=== PATIENT | female | born 1965 | race Caucasian/White ===

== ENCOUNTER 2018-09-23 13:34 | Emergency (ER) | payer OTHER ==
[~2018-09-23] VITALS: Ht 160 cm; Wt 107.5 kg
[~2018-09-23 13:34] MED LIST: AMBIEN10 MG PO; ATIVAN1 MG PO; ESCITALOPRAM OX20 MG PO; L-THEANINE25 GM; LAMOTRIGINE100 MG PO; MELATONIN 5 MG1 EAC1 PO; PROPRANOLOL HCL40 MG PO; VALERIAN ROOT
--- OUTSIDE RECORDS SUMMARY | 2018-09-23 13:38 | XMS ---
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 Case has no Care Guidelines for this patient. Brianna VISIT COUNT (12 MO.) 1 [facility] TOTAL 1 NOTE: Visits indicate total known visits. ED/UCC VISIT TRACKING (12 MO.) 09/23/2018 13:35 [facility] [place] TYPE: Emergency COMPLAINT: - POSS MEDICATION REACTION INPATIENT VISIT TRACKING (12 MO.) No inpatient visits to display in this time frame [email or web address]
[2018-09-23] MEDS ORDERED: KEFLEX500 MG PO (14:39)
== END 2018-09-23 14:45 | disposition home or self-care (01) ==
LOC: ED 13:34
DX: L27.0 Generalized skin eruption due to drugs and medicaments taken internally (principal); T36.8X5A Adverse effect of other systemic antibiotics, initial encounter; F41.9 Anxiety disorder, unspecified; F32.9 Major depressive disorder, single episode, unspecified; Z87.891 Personal history of nicotine dependence; Z88.5 Allergy status to narcotic agent; Z88.2 Allergy status to sulfonamides; Z88.1 Allergy status to other antibiotic agents; Z79.899 Other long term (current) drug therapy
CPT/HCPCS: 99283; J1100; Q0163

== ENCOUNTER 2020-05-24 19:49 | Emergency (ER) | payer OTHER ==
[~2020-05-24] VITALS: Ht 160 cm; Wt 113.4 kg
[~2020-05-24 19:49] MED LIST changes: +KEFLEX500 MG PO
--- OUTSIDE RECORDS SUMMARY | 2020-05-24 19:52 | XMS ---
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 Case has no Care Guidelines for this patient. Care History Medical/Surgical 09/25/2018 [facility] CONTACTED PATIENT. DISCUSSED RECENT ED UTILIZATION. - PATIENT HAS CANCELLED AND RESCHEDULED WITH ESTABLISHING CARE WITH DR ACUNA 2 TIMES IN JULY. - PATIENT STATED SHE WOULD SET UP ANOTHER APT TO ESTABLISH CARE WITH THE CLINIC AND FOLLOW UP WITH PCP. Brianna VISIT COUNT (12 MO.) 1 [facility] TOTAL 1 NOTE: Visits indicate total known visits. ED/UCC VISIT TRACKING (12 MO.) 05/24/2020 19:[address] [facility] [place] TYPE: Emergency COMPLAINT: - CHEST PAIN INPATIENT VISIT TRACKING (12 MO.) No inpatient visits to display in this time frame [id number]
[2020-05-24] MEDS ORDERED: LEVOTHYROXINE50 MCG PO (20:05)
[2020-05-24] MEDS ORDERED: TRAZODONE HCL100 MG PO (20:06)
[2020-05-24] MEDS ORDERED: CLONAZEPAM1 MG PO (20:07)
[2020-05-24] MEDS ORDERED: PRAZOSIN HCL2 MG PO (20:08)
[2020-05-24] MEDS ORDERED: OXYBUTYNIN CHLOR5 MG PO (20:08)
--- NOTE | 2020-05-24 21:24 | EKG ---
[facility] [address] [place], [place] [address] Signed Normal sinus rhythm Cannot rule out Anterior infarct , age undetermined Abnormal ECG No previous ECGs available Confirmed by KILLIAN MONROY MD ([id number]) on 05/24/2020 9:24:21 PM Electronically Signed By: KILLIAN MONROY MD 05/24/202123 PATIENT NAME: GUADALUPE WEEKS Electrocardiogram DATE OF : 67 PHYSICIAN: KILLIAN MONROY MD REPORT #: [id number] REPORT IS CONFIDENTIAL AND NOT TO BE RELEASED WITHOUT AUTHORIZATION
== END 2020-05-24 22:59 | disposition home or self-care (01) ==
LOC: ED 19:49
DX: R07.2 Precordial pain (principal); F17.200 Nicotine dependence, unspecified, uncomplicated; Z88.5 Allergy status to narcotic agent; Z88.8 Allergy status to other drugs, medicaments and biological substances; Z88.2 Allergy status to sulfonamides; Z79.899 Other long term (current) drug therapy
CPT/HCPCS: 71045; 80053; 83735; 84484; 85025; 93005; 93010; 96374; 99285-25; J2060

== ENCOUNTER 2020-11-01 11:53 | Emergency (ER) | payer OTHER ==
[~2020-11-01] VITALS: Ht 160 cm; Wt 99.8 kg
[~2020-11-01 11:53] MED LIST changes: +CLONAZEPAM1 MG PO; +LEVOTHYROXINE50 MCG PO; +OXYBUTYNIN CHLOR5 MG PO; +PRAZOSIN HCL2 MG PO; +TRAZODONE HCL100 MG PO
--- OUTSIDE RECORDS SUMMARY | 2020-11-01 11:56 | XMS ---
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 Care History Medical/Surgical 09/25/2018 [facility] CONTACTED PATIENT. DISCUSSED RECENT ED UTILIZATION. - PATIENT HAS CANCELLED AND RESCHEDULED WITH ESTABLISHING CARE WITH DR ACUNA 2 TIMES IN JULY. - PATIENT STATED SHE WOULD SET UP ANOTHER APT TO ESTABLISH CARE WITH THE CLINIC AND FOLLOW UP WITH PCP. Brianna VISIT COUNT (12 MO[address] 2 [facility] TOTAL 2 NOTE: Visits indicate total known visits. 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
[2020-11-01] MEDS ORDERED: DESVENLAFAXINE100 M3 PO (12:04)
[2020-11-01] MEDS ORDERED: MYRBETRIQ25 MG PO (12:04)
--- NOTE | 2020-11-01 21:10 | EKG ---
[facility] [address] [place] [address] Signed Normal sinus rhythm Nonspecific T wave abnormality Abnormal ECG When compared with ECG of 24-MAY-2020 19:56, Nonspecific T wave abnormality has replaced inverted T waves in Anterior leads Confirmed by CHELA MARQUEZ DO ([id number]) on 11/01/2020 9:09:57 PM Electronically Signed By: CHELA MARQUEZ DO 11/01/202109 PATIENT NAME: GUADALUPE WEEKS Electrocardiogram DATE OF : 67 PHYSICIAN: CHELA MARQUEZ DO REPORT #: [id number] REPORT IS CONFIDENTIAL AND NOT TO BE RELEASED WITHOUT AUTHORIZATION
== END 2020-11-01 17:34 | disposition home or self-care (01) ==
LOC: ED 11:53
DX: K85.90 Acute pancreatitis without necrosis or infection, unspecified (principal); F17.200 Nicotine dependence, unspecified, uncomplicated; Z88.5 Allergy status to narcotic agent; Z88.2 Allergy status to sulfonamides; Z88.1 Allergy status to other antibiotic agents; Z79.899 Other long term (current) drug therapy
CPT/HCPCS: 71045; 80053; 83690; 83735; 84484; 85025; 85379; 93005; 93010; 96374; 96375; 99285-25; J2060; J2270